=== PATIENT | male | born 1980 | race American Indian/Alaskan Native ===

== ENCOUNTER 2018-05-11 02:41 | Emergency (ER) | payer OTHER ==
[2018-05-11 03:42] VITALS: BP 133/91
[2018-05-11 05:28] LABS: Bacteria,Urine 1+ /HPF (Negative); Bilirubin,Urine NEG (Negative); Blood,Urine SM (Negative); Color,Urine Straw (Yellow); Protein,Urine <15 mg/dL mg/dL (Negative); Urobilinogen,Urine < 2.0 mg/dL (<2.0)
[2018-05-11] MEDS ORDERED: ZITHROMAX ONE (06:41)
[2018-05-11] MEDS ORDERED: ROCEPHIN ONE (06:41)
[2018-05-11] MEDS ORDERED: XYLOCAINE 1% MPF 5 mL INFILTRATI ONE (06:47)
[2018-05-11] MEDS ORDERED: ZITHROMAX PO ONE (06:47)
[2018-05-11] MEDS ORDERED: ROCEPHIN IM ONE (06:47)
--- NOTE | 2018-05-11 06:47 | Emergency Department Report ---
ED Male HPI - General Chief complaint: Urogenital-Male Stated complaint: dysuria Time Seen by Provider: 05/11/18 05:54 Source: patient Mode of arrival: Ambulatory Limitations: No Limitations - History of Present Illness Initial comments: 38-year-old [place] male reports to the emergency room for painful urination 5 days and penile discharge 4-5 days. Patient admits to unprotected intercourse with women. Patient denies any fever or chills denies nausea vomiting and denies abdominal pain. Patient reports no past medical history currently takes no medications on a daily basis and has no known drug allergies. MD Complaint: penile discharge, dysuria -: days(s) (5) Location: penis Severity scale (0 -10): 8 Quality: burning Worsens with: urination - Related Data Sexually active: Yes (women) Previous Rx's Medication Instructions Recorded Last Taken Type Doxycycline [Vibramycin CAP] 100 mg PO Q12HR #20 capsule 05/11/18 Unknown Rx metroNIDAZOLE [Flagyl] 2,000 mg PO ONCE #2 tab 05/11/18 Unknown Rx Allergies Allergy/AdvReac Type Severity Reaction Status Date / Time No Known Allergies Allergy Unverified 05/11/18 03:42 ED Review of Systems ROS: Stated complaint: SORE THROAT Other details as noted in HPI Comment: All other systems reviewed and negative Genitourinary: dysuria, discharge ED Past Medical Hx - Past Medical History Previous Medical History?: No - Surgical History Past Surgical History?: No - Social History Smoking Status: Current Every Day Smoker Substance Use Type: None - Medications Home Medications: Home Medications Medication Instructions Recorded Confirmed Last Taken Type Doxycycline [Vibramycin CAP] 100 mg PO Q12HR #20 capsule 05/11/18 Unknown Rx metroNIDAZOLE [Flagyl] 2,000 mg PO ONCE #2 tab 05/11/18 Unknown Rx ED Physical Exam - General Limitations: No Limitations General appearance: alert, in no apparent distress - Eye Eye exam: Present: normal appearance, EOMI - ENT ENT exam: Present: mucous membranes moist - exam: Present: urethral discharge, circumcision. Absent: testicular tenderness, scrotal swelling External exam: Absent: erythema, swelling, lesions, lacerations - Neurological Exam Neurological exam: Present: alert, oriented X3 - Psychiatric Psychiatric exam: Present: normal affect, normal mood - Skin Skin exam: Present: warm, dry, intact, normal color. Absent: rash ED Course Vital Signs 10/03/18 03:38 Temperature 97.8 F Pulse Rate 68 Respiratory 16 Rate Blood Pressure 133/91 O2 Sat by Pulse 100 Oximetry ED Medical Decision Making - Medical Decision Making Patient has been evaluated by this provider in fast track. Gonorrhea Chlamydia sent down to lab. Urinalysis come back with elevated white count Patient be treated for STD Rocephin 250 mg IM, azithromycin 1 g by mouth, Patient will be discharged home on doxycycline and Flagyl. Discussed patient he needs to follow up with the health department for further evaluation of HIV, syphilis, herpes, hepatitis. Critical care attestation.: If time is entered above; I have spent that time in minutes in the direct care of this critically ill patient, excluding procedure time. ED Disposition Clinical Impression: STD (male) Disposition: - TO HOME OR SELFCARE Is pt being admited?: No Does the pt Need Aspirin: No Condition: Stable Instructions: Sexually Transmitted Diseases (ED), Safe Sex (ED) Additional Instructions: Please complete antibiotics as prescribed. It is very important for you to follow-up at the health department as she needed to be checked for HIV, syphilis , herpes, hepatitis. Prescriptions: Doxycycline [Vibramycin CAP] 100 mg PO Q12HR #20 capsule metroNIDAZOLE [Flagyl] 2,000 mg PO ONCE #2 tab Referrals: PRIMARY CARE, [Primary Care Provider] - 3-5 Days [facility] [Outside] - 3-5 Days [facility] [Outside] - 3-5 Days [facility] [Outside] - 3-5 Days [facility] [Outside] - 3-[address] [facility] [Outside] - 3-5 Days Forms: Work/School Release Form(ED)
== END 2018-05-11 07:05 | disposition home or self-care (01) ==
LOC: ED 02:41
DX: Z20.2 Contact with and (suspected) exposure to infections with a predominantly sexual mode of transmission (principal); F17.200 Nicotine dependence, unspecified, uncomplicated
CPT/HCPCS: 81001; 87591; 96372; 99283; J0696